=== PATIENT | female | born 1980 | race Caucasian/White ===

== ENCOUNTER → 2024-01-03 12:40 | Outpatient (REF) | payer BC, SELFPAY | LOC: WOUND 12:40 | PROVIDERS: ATTENDING PHYSICIAN Surgery | DX: S71.151A Open bite, right thigh, initial encounter (principal); S81.851A Open bite, right lower leg, initial encounter; W54.0XXA Bitten by dog, initial encounter; S71.101A Unspecified open wound, right thigh, initial encounter; S81.831A Puncture wound without foreign body, right lower leg, initial encounter | CPT/HCPCS: 11042; 99203 ==

== ENCOUNTER → 2024-01-09 09:57 | Outpatient (REF) | payer BC, SELFPAY | LOC: WOUND 09:57 | PROVIDERS: ATTENDING PHYSICIAN Surgery | DX: S71.151A Open bite, right thigh, initial encounter (principal); S81.851A Open bite, right lower leg, initial encounter; W54.0XXA Bitten by dog, initial encounter; S71.101A Unspecified open wound, right thigh, initial encounter; S81.831A Puncture wound without foreign body, right lower leg, initial encounter | CPT/HCPCS: 11042 ==

== ENCOUNTER → 2024-01-24 15:05 | Outpatient (REF) | payer BC, SELFPAY | LOC: WOUND 15:05 | PROVIDERS: ATTENDING PHYSICIAN Surgery | DX: S71.151A Open bite, right thigh, initial encounter (principal); S81.851A Open bite, right lower leg, initial encounter; W54.0XXA Bitten by dog, initial encounter; S81.831A Puncture wound without foreign body, right lower leg, initial encounter | CPT/HCPCS: 11042 ==

== ENCOUNTER → 2024-02-07 13:34 | Outpatient (REF) | payer BC, SELFPAY | LOC: WOUND 13:34 | PROVIDERS: ATTENDING PHYSICIAN Surgery | DX: S71.151A Open bite, right thigh, initial encounter (principal); S81.851A Open bite, right lower leg, initial encounter; W54.0XXA Bitten by dog, initial encounter | CPT/HCPCS: 99212 ==